=== PATIENT | female | born 1960 | race American Indian/Alaskan Native ===

== ENCOUNTER 2019-02-09 20:24 | Emergency (ER) | payer SELFPAY ==
[2019-02-09] MEDS ORDERED: PROVENTIL IH ONE (20:51)
[2019-02-09] MEDS ORDERED: PEPCID IV ONE (20:51)
[2019-02-09] MEDS ORDERED: BENADRYL IV ONE (20:51)
[2019-02-09] MEDS ORDERED: SOLU-Medrol IV ONE (20:51)
[2019-02-09] MEDS ORDERED: NACL 0.9% 1000 ML 1,000 ML IV ONE (20:51)
[2019-02-09 21:12] LABS: Basophils % (Auto) 0.4 % (0.0-1.8); Eosinophils # (Auto) 0.2 K/mm3 (0.0-0.4); Eosinophils % (Auto) 1.8 % (0.0-4.3); Hematocrit 40.6 % (30.3-42.9); Hemoglobin 13.3 gm/dl (10.1-14.3); Lymphocytes # (Auto) 3.3 K/mm3 (1.2-5.4); Lymphocytes % (Auto) 36.6 % (13.4-35.0); Mean Corpuscular HGB Conc 33 % (30-34); Mean Corpuscular Volume 81 fl (79-97); Monocytes # (Auto) 0.2 K/mm3 (0.0-0.8); Monocytes % (Auto) 2.1 % (0.0-7.3); Platelet Count 247 K/mm3 (140-440); Red Blood Count 5.01 M/mm3 (3.65-5.03); Red Cell Distribution Width 16.1 % (13.2-15.2)
--- NOTE | 2019-02-09 21:22 | Emergency Department Report ---
ED Allergic Reaction HPI - General Chief complaint: Allergic Reaction Stated complaint: ALLERGIC REACTION Time Seen by Provider: 02/09/19 20:50 Source: patient, EMS Mode of arrival: Stretcher Limitations: No Limitations - History of Present Illness Initial Comments: Patient is 58 years old female with past medical history of diabetes and hypertension and previous allergic reaction. Patient has stated that she was eating [place] food when all of a sudden she started having difficulty breathing and diffuse rash and hives with itching. Patient stated that she took her EpiPen. Patient denied any difficulty swallowing. No stridor. MD Complaint: allergic reaction, hives Symptoms: rash, itching, difficulty breathing. denies: orolingual swelling Severity: moderate Treatment Prior to Arrival: benadryl, epinephrine Previous Allergy History: prior ED visit(s) - Related Data Allergies Allergy/AdvReac Type Severity Reaction Status Date / Time Beef Containing Products Allergy Anaphylaxis Verified 02/09/19 20:43 corn Allergy Anaphylaxis Verified 02/09/19 20:43 latex Allergy Anaphylaxis Verified 02/09/19 20:43 Penicillins Allergy Anaphylaxis Verified 02/09/19 20:43 pork derived (porcine) Allergy Anaphylaxis Verified 02/09/19 20:43 wheat Allergy Anaphylaxis Verified 02/09/19 20:43 ED Review of Systems ROS: Stated complaint: ALLERGIC REACTION Other details as noted in HPI Comment: All other systems reviewed and negative Constitutional: denies: chills, fever Respiratory: denies: cough, orthopnea Cardiovascular: denies: chest pain Gastrointestinal: denies: abdominal pain Genitourinary: denies: urgency, dysuria, frequency, hematuria, discharge Neurological: denies: headache, weakness ED Past Medical Hx - Past Medical History Previous Medical History?: Yes Hx Hypertension: Yes Hx Diabetes: Yes Additional medical history: Multiple food allergies - Surgical History Past Surgical History?: Yes Hx Breast Surgery: Yes (reduction) Additional Surgical History: C-sections, hysterectomy - Social History Smoking Status: Never Smoker Substance Use Type: Prescribed ED Physical Exam - General Limitations: No Limitations General appearance: alert, in no apparent distress, anxious - Head Head exam: Present: atraumatic, normocephalic, normal inspection - Eye Eye exam: Present: normal appearance - ENT ENT exam: Present: normal exam, normal orophraynx, mucous membranes moist - Neck Neck exam: Present: normal inspection, full ROM. Absent: tenderness, meningismus, lymphadenopathy, thyromegaly - Respiratory Respiratory exam: Present: wheezes - Cardiovascular Cardiovascular Exam: Present: regular rate, normal rhythm, normal heart sounds - GI/Abdominal GI/Abdominal exam: Present: soft, normal bowel sounds. Absent: distended, tenderness, guarding, rebound, rigid, organomegaly, mass, bruit, pulsatile mass, hernia - Extremities Exam Extremities exam: Present: normal inspection, full ROM, normal capillary refill - Back Exam Back exam: Present: normal inspection, full ROM. Absent: CVA tenderness (R), C VA tenderness (L), muscle spasm, paraspinal tenderness, vertebral tenderness - Neurological Exam Neurological exam: Present: alert, oriented X3, CN II-XII intact - Skin Skin exam: Present: warm, intact, rash ED Course Vital Signs 02/09/19 02/09/19 02/09/19 20:31 20:32 20:46 Temperature 97.5 F L Pulse Rate 85 95 H Pulse Rate [ Anterior] Respiratory 21 13 Rate Respiratory Rate [Anterior] Blood Pressure 129/72 129/72 O2 Sat by Pulse 99 97 94 Oximetry 02/09/19 02/09/19 02/09/19 21:00 21:07 21:15 Temperature Pulse Rate 85 85 Pulse Rate [ 85 Anterior] Respiratory 14 10 L Rate Respiratory 18 Rate [Anterior] Blood Pressure 124/73 137/73 O2 Sat by Pulse 99 100 Oximetry 02/09/19 02/09/19 02/09/19 21:30 21:45 22:19 Temperature Pulse Rate 89 84 Pulse Rate [ 90 Anterior] Respiratory 15 17 Rate Respiratory 22 Rate [Anterior] Blood Pressure 131/56 143/78 O2 Sat by Pulse 100 98 Oximetry 02/09/19 02/09/19 02/09/19 22:23 22:30 23:01 Temperature Pulse Rate 90 84 Pulse Rate [ Anterior] Respiratory 13 17 21 Rate Respiratory Rate [Anterior] Blood Pressure 138/81 150/83 150/83 O2 Sat by Pulse 98 97 99 Oximetry 02/09/19 23:15 Temperature Pulse Rate Pulse Rate [ Anterior] Respiratory Rate Respiratory Rate [Anterior] Blood Pressure 159/90 O2 Sat by Pulse 99 Oximetry ED Medical Decision Making - Lab Data Result diagrams: 02/09/19 20:57 02/09/19 20:57 - Medical Decision Making Patient is 58 years old female with past medical history of diabetes and hy pertension and previous allergic reaction. Patient has stated that she was eating [place] food when all of a sudden she started having difficulty breathing and diffuse rash and hives with itching. Patient stated that she took her EpiPen. Patient denied any difficulty swallowing. No stridor. Patient received Benadryl, Solu-Medrol, Pepcid and albuterol. The patient stated that she is feeling much better. Patient observed in the ER was no relapse of her symptoms. Patient discharged with prednisone, Benadryl and Pepcid and EpiPen and advised to follow-up with her primary care physician in the next 2-3 days and to return to the ER if symptoms are not improved. Critical Care Time: Yes Critical care time in (mins) excluding proc time.: 30 Critical care attestation.: If time is entered above; I have spent that time in minutes in the direct care of this critically ill patient, excluding procedure time. ED Disposition Clinical Impression: Acute allergic reaction Disposition: DC-01 TO HOME OR SELFCARE Is pt being admited?: No Condition: Stable Instructions: Food Allergy (ED) Referrals: PRIMARY CARE, [Primary Care Provider] - 3-5 Days Forms: Work/School Release Form(ED)
[2019-02-09 21:42] LABS: Calcium 9.3 mg/dL (8.4-10.2)
[2019-02-09 23:58] VITALS: BP 159/90
== END 2019-02-10 01:11 | disposition home or self-care (01) ==
LOC: ED 20:24
DX: T78.1XXA Other adverse food reactions, not elsewhere classified, initial encounter (principal); E11.9 Type 2 diabetes mellitus without complications; I10 Essential (primary) hypertension; R06.89 Other abnormalities of breathing; R06.2 Wheezing; Z90.710 Acquired absence of both cervix and uterus; Z91.018 Allergy to other foods; Z88.0 Allergy status to penicillin; Z91.040 Latex allergy status; X58.XXXA Exposure to other specified factors, initial encounter
CPT/HCPCS: 36415; 80048; 85025; 94640; 96374; 96375; 99285; J1200; J2930; J7030

== ENCOUNTER 2020-08-19 12:55 | Outpatient (CLI) | payer OTHER ==
[2020-08-19 13:38] LABS: Hematocrit 40.1 % (30.3-42.9); Mean Corpuscular HGB Conc 32 % (30-34); Mean Corpuscular Volume 81 fl (79-97); Platelet Count 305 K/mm3 (140-440); Red Blood Count 4.96 M/mm3 (3.65-5.03); Red Cell Distribution Width 15.9 % (13.2-15.2)
[2020-08-19 14:07] LABS: Alanine Aminotransferase 15 units/L (7-56); Albumin 4.2 g/dL (3.9-5); Blood Urea Nitrogen 12 mg/dL (7-17); Calcium 10.1 mg/dL (8.4-10.2); Hemolysis Index 1
[2020-08-19 14:21] LABS: BUN/Creatinine Ratio 20
[2020-08-19 15:15] LABS: Erythrocyte Sedimentation Rate 27 mm/Hr (0-20)
== END 2020-08-19 12:56 | disposition home or self-care (01) ==
LOC: LAB 12:55
PROVIDERS: ATTEND Specialist
DX: I63.231 Cerebral infarction due to unspecified occlusion or stenosis of right carotid arteries (principal)
CPT/HCPCS: 36415; 80053; 83921; 85027; 85652; 86140; 86592